=== PATIENT | male | born 1955 | race Caucasian/White ===

== ENCOUNTER → 2018-05-14 15:20 | Outpatient (CLI) | payer OTHER, SELFPAY ==
[2018-05-14 17:15] LABS: Prolactin 14.9 ng/mL (3.7-17.9)
== END ==
PROVIDERS: Family Provider Family Medicine; PCP Family Medicine; Visit Provider Family Medicine
DX: R79.89 Other specified abnormal findings of blood chemistry (principal)
CPT/HCPCS: 36415; 84146

== ENCOUNTER → 2018-06-12 16:30 | Outpatient (CLI) | payer OTHER, SELFPAY ==
[2018-06-12 17:39] LABS: Prolactin 5.7 ng/mL (3.7-17.9)
== END ==
PROVIDERS: PCP Family Medicine; Visit Provider Family Medicine
DX: F52.32 Male orgasmic disorder (principal)
CPT/HCPCS: 36415; 84146

== ENCOUNTER → 2018-07-03 15:00 | Outpatient (CLI) | payer OTHER, SELFPAY | PROVIDERS: Family Provider Family Medicine; PCP Family Medicine; Visit Provider Urology | DX: R97.20 Elevated prostate specific antigen [PSA] (principal) | CPT/HCPCS: 36415; 84153 ==

== ENCOUNTER → 2019-02-20 08:13 | Outpatient (CLI) | payer OTHER, SELFPAY ==
[2019-02-20 09:39] LABS: HEMOLYSIS < 15 (0-50)
[2019-02-20 09:40] LABS: Alanine Aminotransferase 27 IU/L (21-72); Albumin 4.3 g/dL (3.5-5.0); Albumin Globulin Ratio 1.6 (1.0-2.8); Alkaline Phosphatase 48 U/L (38-126); Aspartate Aminotransferase 34 IU/L (17-59); BUN Creatinine Ratio 18.2 (6-22); Bilirubin Total 0.8 mg/dL (0.2-1.3); Blood Urea Nitrogen 20 mg/dL (9-20); Calcium 9.4 mg/dL (8.4-10.2); Carbon Dioxide 33 mmol/L (22-32); Chloride 101 mmol/L (98-107); Cholesterol 218 mg/dL (140-199); Estimated Glomerular Filt Rate > 60.0 mL/min (>60); Globulin 2.7 g/dL (1.7-4.1); Glucose 87 mg/dL (80-110); HDL Cholesterol 61 mg/dL (40-60); LDL Cholesterol Calculated 147 mg/dL (<100); Sodium 139 mmol/L (137-145); Triglycerides 49 mg/dL (35-150)
[2019-02-20 09:56] LABS: Prolactin 26.5 ng/mL (3.7-17.9)
[2019-02-20 10:10] LABS: Prostate Specific Antigen 5.19 ng/mL (0.10-4.00)
[2019-02-24 19:20] LABS: TSH w/ Reflex to FT4 2.83 uIU/mL (0.47-4.68)
== END ==
PROVIDERS: PCP Family Medicine; Visit Provider Urology
DX: E78.5 Hyperlipidemia, unspecified (principal); F52.32 Male orgasmic disorder; Z12.5 Encounter for screening for malignant neoplasm of prostate
CPT/HCPCS: 36415; 80053; 80061; 84146; 84153; 84443

== ENCOUNTER → 2019-05-29 15:58 | Outpatient (CLI) | payer OTHER, SELFPAY ==
[2019-05-29 17:45] LABS: Prolactin 18.5 ng/mL (3.7-17.9)
[2019-05-29 18:00] LABS: Thyroid Stimulating Hormone 2.66 uIU/mL (0.47-4.68)
[2019-06-01 02:05] LABS: Sex Hormone Binding Globulin 63 nmol/L (22-77)
== END ==
PROVIDERS: PCP Family Medicine; Visit Provider Family Medicine
DX: E22.1 Hyperprolactinemia (principal)
CPT/HCPCS: 36415; 84146; 84270; 84403; 84443

== ENCOUNTER → 2019-06-01 07:33 | Outpatient (CLI) | payer OTHER, SELFPAY ==
[2019-06-01 09:44] LABS: Prolactin 34.2 ng/mL (3.7-17.9)
== END ==
PROVIDERS: PCP Family Medicine; Visit Provider Family Medicine
DX: E22.1 Hyperprolactinemia (principal)
CPT/HCPCS: 36415; 84146; 84403

== ENCOUNTER → 2019-08-14 08:09 | Outpatient (CLI) | payer OTHER, SELFPAY ==
--- NOTE | 2019-08-14 08:10 | DI.MRI.S_ITS ---
PROCEDURE: MR BRAIN (PITUITARY) WWO CON INDICATIONS: elevated prolactin, rule out pituitary tumor TECHNIQUE: Noncontrast sagittal and axial FLAIR, axial gradient echo, axial diffusion and ADC through the brain. Thin-slice sagittal and coronal T1 spin echo, coronal T2 fast spin echo through the pituitary. After the administration contrast, optional dynamic coronal T1 spin echo, thin-slice coronal and sagittal T1 spin echo images through the pituitary fossa; axial T1 spin echo with fat saturation through the brain. COMPARISON: None. FINDINGS: Image quality: Excellent. Pituitary Gland: The pituitary gland is normal in size. No areas of delayed abnormal enhancement or mass lesion are identified. CSF Spaces: Ventricles are normal in size and shape. Basal cisterns are patent. No extra-axial fluid collections. Brain: No intracranial bleeds or mass effects. No abnormal intracranial enhancement. Zhang-white matter interface is intact. Diffusion weighted images demonstrate no acute ischemic insults. Brainstem is normal. Normal intravascular flow voids are present. Skull and face: Calvarial marrow is normal in signal. Orbits appear normal. Sinuses: Sinuses and mastoids are clear. IMPRESSION: 1. Pituitary gland is unremarkable. Dictated by: Sharon Espinal M.D. on 08/14/2019 at 16:10 Approved by: Sharon Espinal M.D. on 08/14/2019 at 16:12
== END ==
PROVIDERS: PCP Family Medicine; Visit Provider Family Medicine
DX: E22.1 Hyperprolactinemia (principal)
CPT/HCPCS: 70553; A9579

== ENCOUNTER → 2020-04-05 07:48 | Outpatient (CLI) | payer OTHER, SELFPAY ==
[2020-04-05 09:15] LABS: Alanine Aminotransferase 19 IU/L (<50); Albumin 4.3 g/dL (3.5-5.0); Albumin Globulin Ratio 1.7 (1.0-2.8); Alkaline Phosphatase 49 U/L (38-126); Aspartate Aminotransferase 36 IU/L (17-59); BUN Creatinine Ratio 24.5 (6-22); Bilirubin Total 0.8 mg/dL (0.2-1.3); Blood Urea Nitrogen 26 mg/dL (9-20); Calcium 9.5 mg/dL (8.4-10.2); Carbon Dioxide 30 mmol/L (22-32); Chloride 103 mmol/L (98-107); Cholesterol 259 mg/dL (140-199); Estimated Glomerular Filt Rate > 60.0 mL/min (>60); Globulin 2.6 g/dL (1.7-4.1); Glucose 85 mg/dL (80-110); HDL Cholesterol 75 mg/dL (40-60); HEMOLYSIS < 15 (0-50); LDL Cholesterol Calculated 172 mg/dL (<100); Potassium 4.2 mmol/L (3.4-5.1); Sodium 137 mmol/L (137-145); Total Protein 6.9 g/dL (6.3-8.2); Triglycerides 61 mg/dL (35-150)
[2020-04-05 09:30] LABS: Prolactin 20.7 ng/mL (3.7-17.9)
[2020-04-05 09:45] LABS: Prostate Specific Antigen Scrn 4.25 ng/mL (0.1-4.0)
[2020-04-05 09:47] LABS: Testosterone 1340 ng/dL (71.8-623)
== END ==
PROVIDERS: PCP Family Medicine; Referring Provider Family Medicine; Visit Provider Family Medicine
DX: Z12.5 Encounter for screening for malignant neoplasm of prostate (principal); E78.5 Hyperlipidemia, unspecified; E22.1 Hyperprolactinemia
CPT/HCPCS: 36415; 80053; 80061; 84146; 84403; G0103

== ENCOUNTER → 2020-05-10 06:56 | Outpatient (CLI) | payer OTHER, SELFPAY ==
[2020-05-10 09:04] LABS: Cholesterol 196 mg/dL (140-199); HDL Cholesterol 67 mg/dL (40-60); LDL Cholesterol Calculated 118 mg/dL (<100); Triglycerides 54 mg/dL (35-150)
[2020-05-10 09:07] LABS: High Sensitivity CRP - Cardiac 0.1 mg/L (1.0-3.0)
== END ==
PROVIDERS: PCP Family Medicine; Referring Provider Family Medicine; Visit Provider Family Medicine
DX: E78.5 Hyperlipidemia, unspecified (principal)
CPT/HCPCS: 36415; 80061; 86140

== ENCOUNTER → 2020-06-08 07:29 | Outpatient (CLI) | payer OTHER, SELFPAY ==
[2020-06-08 09:30] LABS: Cholesterol 199 mg/dL (140-199); Glucose 87 mg/dL (80-110); HDL Cholesterol 67 mg/dL (40-60); LDL Cholesterol Calculated 120 mg/dL (<100); Triglycerides 61 mg/dL (35-150)
== END ==
PROVIDERS: PCP Family Medicine; Referring Provider Family Medicine; Visit Provider Family Medicine
DX: E78.5 Hyperlipidemia, unspecified (principal)
CPT/HCPCS: 36415; 80061; 82947; 83525

== ENCOUNTER → 2020-12-07 07:36 | Outpatient (CLI) | payer OTHER, SELFPAY ==
[2020-12-07 08:43] LABS: HEMOLYSIS < 15 (0-50)
[2020-12-07 08:52] LABS: Alanine Aminotransferase 31 IU/L (<50); Albumin 4.1 g/dL (3.5-5.0); Albumin Globulin Ratio 1.5 (1.0-2.8); Alkaline Phosphatase 65 U/L (38-126); Aspartate Aminotransferase 71 IU/L (17-59); BUN Creatinine Ratio 27.6 (6-22); Bilirubin Total 0.5 mg/dL (0.2-1.3); Blood Urea Nitrogen 29 mg/dL (9-20); Calcium 9.4 mg/dL (8.4-10.2); Carbon Dioxide 29 mmol/L (22-32); Chloride 104 mmol/L (98-107); Cholesterol 208 mg/dL (140-199); Estimated Glomerular Filt Rate > 60.0 mL/min (>60); Globulin 2.8 g/dL (1.7-4.1); Glucose 99 mg/dL (80-110); HDL Cholesterol 64 mg/dL (40-60); LDL Cholesterol Calculated 136 mg/dL (<100); Potassium 3.9 mmol/L (3.4-5.1); Sodium 139 mmol/L (137-145); Total Protein 6.9 g/dL (6.3-8.2); Triglycerides 42 mg/dL (35-150)
[2020-12-07 09:26] LABS: Prolactin 24.5 ng/mL (3.7-17.9)
== END ==
PROVIDERS: PCP Family Medicine; Referring Provider Family Medicine; Visit Provider Family Medicine
DX: D44.3 Neoplasm of uncertain behavior of pituitary gland (principal); E78.5 Hyperlipidemia, unspecified
CPT/HCPCS: 36415; 80053; 80061; 84146

== ENCOUNTER → 2021-02-02 08:39 | Outpatient (CLI) | payer OTHER, SELFPAY ==
[2021-02-02 09:34] LABS: Alanine Aminotransferase 18 IU/L (<50); Albumin Globulin Ratio 1.5 (1.0-2.8); Alkaline Phosphatase 54 U/L (38-126); Aspartate Aminotransferase 37 IU/L (17-59); BUN Creatinine Ratio 21.2 (6-22); Bilirubin Total 0.6 mg/dL (0.2-1.3); Blood Urea Nitrogen 22 mg/dL (9-20); Calcium 9.6 mg/dL (8.4-10.2); Carbon Dioxide 28 mmol/L (22-32); Chloride 104 mmol/L (98-107); Cholesterol 204 mg/dL (140-199); Estimated Glomerular Filt Rate > 60.0 mL/min (>60); Globulin 2.6 g/dL (1.7-4.1); Glucose 94 mg/dL (80-110); HDL Cholesterol 67 mg/dL (40-60); HEMOLYSIS < 15 (0-50); LDL Cholesterol Calculated 128 mg/dL (<100); Potassium 4.4 mmol/L (3.4-5.1); Sodium 137 mmol/L (137-145); Total Protein 6.6 g/dL (6.3-8.2); Triglycerides 46 mg/dL (35-150)
== END ==
PROVIDERS: PCP Family Medicine; Referring Provider Family Medicine; Visit Provider Family Medicine
DX: E78.2 Mixed hyperlipidemia (principal); R74.01 Elevation of levels of liver transaminase levels
CPT/HCPCS: 36415; 80053; 80061

== ENCOUNTER → 2023-02-18 12:30 | Outpatient (CLI) | payer OTHER, SELFPAY ==
[2023-02-18 14:05] LABS: Hematocrit 41.3 % (41-53); Hemoglobin 14.3 g/dL (13.5-17.5); Mean Corpuscular HGB Conc 34.5 % (30-36); Mean Corpuscular Hemoglobin 33.2 PG (26-34); Mean Corpuscular Volume 96.3 fL (80-100); Platelet Count 185 X10^3/uL (150-400); Red Blood Cell Count 4.29 X10^6/uL (4.5-5.9); Red Cell Distribution Width 13.6 % (11.6-14.8); White Blood Cell Count 3.6 X10^3/uL (4.5-11.0)
[2023-02-18 15:00] LABS: Alanine Aminotransferase 26 IU/L (<50); Albumin 4.3 g/dL (3.5-5.0); Albumin Globulin Ratio 1.3 (1.0-2.8); Alkaline Phosphatase 60 U/L (38-126); Aspartate Aminotransferase 38 IU/L (17-59); BUN Creatinine Ratio 21.4 (6-22); Bilirubin Total 0.5 mg/dL (0.2-1.3); Blood Urea Nitrogen 24 mg/dL (9-20); Calcium 9.1 mg/dL (8.4-10.2); Carbon Dioxide 32 mmol/L (22-32); Chloride 101 mmol/L (98-107); Cholesterol 279 mg/dL (140-199); Estimated Glomerular Filt Rate > 60 mL/min (>60); Globulin 3.2 g/dL (1.7-4.1); Glucose 95 mg/dL (80-110); HDL Cholesterol 77 mg/dL (40-60); HEMOLYSIS < 15 (0-50); LDL Cholesterol Calculated 192 mg/dL (<100); Potassium 4.4 mmol/L (3.4-5.1); Sodium 137 mmol/L (137-145); Total Protein 7.5 g/dL (6.3-8.2); Triglycerides 50 mg/dL (35-150)
[2023-02-18 15:12] LABS: Prolactin 13.3 ng/mL (3.7-17.9)
[2023-02-18 15:25] LABS: Prostate Specific Antigen 5.55 ng/mL (0.10-4.00)
[2023-02-18 15:28] LABS: Testosterone 962 ng/dL (71.8-623)
[2023-02-18 15:31] LABS: TSH w/ Reflex to FT4 1.59 uIU/mL (0.47-4.68)
[2023-02-19 04:46] LABS: Apolipoprotein B 129 mg/dL (<90)
[2023-02-20 11:16] LABS: Lipoprotein (a) 9.3 nmol/L (<75.0)
== END ==
PROVIDERS: PCP Internal Medicine; Referring Provider Internal Medicine; Visit Provider Internal Medicine
DX: E78.2 Mixed hyperlipidemia (principal); N13.8 Other obstructive and reflux uropathy; N40.1 Benign prostatic hyperplasia with lower urinary tract symptoms; Z82.0 Family history of epilepsy and other diseases of the nervous system; E22.1 Hyperprolactinemia
CPT/HCPCS: 36415; 80053; 80061; 82172; 83695; 84146; 84153; 84403; 84443; 85027

== ENCOUNTER → 2024-02-18 08:34 | Outpatient (CLI) | payer MEDICARE, SELFPAY ==
[2024-02-18 09:24] LABS: Aspartate Aminotransferase 52 IU/L (17-59); BUN Creatinine Ratio 21.7 (6-22); Blood Urea Nitrogen 26 mg/dL (9-20); Carbon Dioxide 31 mmol/L (22-32); Chloride 105 mmol/L (98-107); Cholesterol 180 mg/dL (140-199); Estimated Glomerular Filt Rate > 60 mL/min (>60); Glucose 101 mg/dL (80-110); HDL Cholesterol 89 mg/dL (40-60); HEMOLYSIS < 15 (0-50); LDL Cholesterol Calculated 80 mg/dL (<100); Sodium 138 mmol/L (137-145); Triglycerides 56 mg/dL (35-150)
[2024-02-18 09:41] LABS: Prolactin 17.9 ng/mL (3.7-17.9)
[2024-02-18 09:54] LABS: Prostate Specific Antigen 4.84 ng/mL (0.10-4.00)
== END ==
PROVIDERS: PCP Internal Medicine; Referring Provider Internal Medicine; Visit Provider Internal Medicine
DX: N40.1 Benign prostatic hyperplasia with lower urinary tract symptoms (principal); E78.2 Mixed hyperlipidemia; N13.8 Other obstructive and reflux uropathy; R97.20 Elevated prostate specific antigen [PSA]; E22.1 Hyperprolactinemia
CPT/HCPCS: 36415; 80048; 80061; 84146; 84153; 84450

== ENCOUNTER → 2025-03-02 17:13 | Outpatient (CLI) | payer MEDICARE, SELFPAY ==
[2025-03-02 18:18] LABS: Blood Urea Nitrogen 32 mg/dL (9-20); Calcium 9.1 mg/dL (8.4-10.2); Carbon Dioxide 25 mmol/L (22-32); Chloride 105 mmol/L (98-107); Cholesterol 242 mg/dL (140-199); Estimated Glomerular Filt Rate > 60 mL/min (>60); Glucose 97 mg/dL (70-99); HDL Cholesterol 63 mg/dL (40-60); HEMOLYSIS < 15 (0-50); Potassium 4.0 mmol/L (3.4-5.1); Sodium 137 mmol/L (137-145); Triglycerides 63 mg/dL (35-150)
[2025-03-02 18:50] LABS: Prostate Specific Antigen 7.00 ng/mL (0.10-4.00); TSH w/ Reflex to FT4 1.67 uIU/mL (0.47-4.68)
[2025-03-02 19:07] LABS: Vitamin B12 Reflex MMA if <400 593 pg/mL (239-931)
== END ==
PROVIDERS: PCP Internal Medicine; Referring Provider Internal Medicine; Visit Provider Internal Medicine
DX: E78.2 Mixed hyperlipidemia (principal); N40.1 Benign prostatic hyperplasia with lower urinary tract symptoms; N13.8 Other obstructive and reflux uropathy; R97.20 Elevated prostate specific antigen [PSA]; E53.8 Deficiency of other specified B group vitamins
CPT/HCPCS: 36415; 80048; 80061; 82607; 84153; 84443; 84450

== ENCOUNTER → 2025-06-22 14:48 | Outpatient (CLI) | payer MEDICARE, SELFPAY ==
[2025-06-22 15:15] LABS: Hematocrit 42.6 % (41-53); Hemoglobin 14.6 g/dL (13.5-17.5); Mean Corpuscular HGB Conc 34.2 % (30-36); Mean Corpuscular Hemoglobin 32.5 PG (26-34); Mean Corpuscular Volume 95.1 fL (80-100); Platelet Count 188 X10^3/uL (150-400)
[2025-06-22 15:16] LABS: Appearance Urine UA CLEAR; Bilirubin Urine UA NEGATIVE (NEGATIVE); Color Urine UA YELLOW; Glucose Urine UA NEGATIVE (Negative); Ketones Urine UA NEGATIVE (NEGATIVE); Leukocyte Esterase Urine UA NEGATIVE (NEGATIVE); Nitrite Urine UA NEGATIVE (Negative); Occult Blood Urine UA TRACE-INTACT (Negative); Protein Urine UA NEGATIVE (Negative); Specific Gravity Urine UA 1.020 (1.000-1.035); Urobilinogen Urine UA 0.2 E.U./dL (0.2); pH Urine UA 6.5 (4.5-8.0)
[2025-06-22 15:23] LABS: Culture Indicated Urine Cult Not Indicated
[2025-06-22 15:41] LABS: Alanine Aminotransferase 20 IU/L (<50); Albumin 4.7 g/dL (3.5-5.0); Albumin Globulin Ratio 1.7 (1.0-2.8); Alkaline Phosphatase 58 U/L (38-126); Blood Urea Nitrogen 27 mg/dL (9-20); Calcium 9.7 mg/dL (8.4-10.2); Carbon Dioxide 27 mmol/L (22-32); Chloride 103 mmol/L (98-107); Estimated Glomerular Filt Rate > 60 mL/min (>60); Globulin 2.8 g/dL (1.7-4.1); Glucose 110 mg/dL (70-99); HEMOLYSIS < 15 (0-50); Potassium 4.3 mmol/L (3.4-5.1); Sodium 137 mmol/L (137-145); Total Protein 7.5 g/dL (6.3-8.2)
[2025-06-22 16:06] LABS: TSH w/ Reflex to FT4 1.43 uIU/mL (0.47-4.68)
[2025-06-22 16:29] LABS: Vitamin B12 683 pg/mL (239-931)
== END ==
PROVIDERS: PCP Internal Medicine; Referring Provider Internal Medicine; Visit Provider Internal Medicine
DX: E78.2 Mixed hyperlipidemia (principal); N40.1 Benign prostatic hyperplasia with lower urinary tract symptoms; N13.8 Other obstructive and reflux uropathy; E53.8 Deficiency of other specified B group vitamins; R39.9 Unspecified symptoms and signs involving the genitourinary system
CPT/HCPCS: 36415; 80053; 81001; 82607; 84443; 85027

== ENCOUNTER → 2025-06-25 12:05 | Outpatient (CLI) | payer MEDICARE, SELFPAY ==
--- NOTE | 2025-06-25 12:06 | DI.MRI.S_ITS ---
PROCEDURE: MR STROKE Pre- and post-contrast brain MRI, non-contrast brain MR angiogram, pre- and postcontrast neck MR angiogram INDICATIONS: altered mental status TECHNIQUE: Brain: Noncontrast axial T1 spin echo, axial T2 fast spin echo, sagittal and axial FLAIR, coronal T2 fast spin echo, axial gradient echo, axial diffusion and ADC through the brain. After the administration of contrast, axial 3D VIBE of the cranial vasculature and brain. Brain MRA: Non-contrast 3-D time of flight MR angiogram, with multiple sarmxhg-ydkoiemip-lynhttuaid (MIP) reformats performed. Neck MRA: Axial and sagittal TruFISP through the neck. Coronal dynamic MR angiogram during administration of contrast in the arterial and venous phases, with 3- dimenstional dwafvou-exzvjueql-jxjjrydhek (MIP) reformats constructed from subtraction images. COMPARISON: None. FINDINGS: Image quality: Excellent. BRAIN: CSF spaces: Ventricles are normal in size and shape. Basal cisterns are patent. No extra-axial fluid collections. Brain: No intracranial bleeds or mass effects. Zhang-white matter interface is normal. Diffusion weighted images show no acute infarct. Brainstem appears normal. Normal intravascular flow voids are present. No abnormal intracranial enhancement. Skull and face: Calvarial marrow signal is normal. Orbits appear normal. Sinuses: Sinuses and mastoids are clear. BRAIN MR ANGIOGRAM: Anterior circulation: Intracranial internal carotid arteries are normal in size and enhancement. The flow within the paired anterior cerebral arteries is normal and symmetric. The flow within the middle cerebral arteries is normal and symmetric. The anterior communicating artery is seen. No stenoses, occlusions, or aneurysms. Posterior circulation: The visualized portions of the vertebral arteries demonstrate normal caliber, and join to form a normal appearing basilar artery. The flow within the posterior cerebral arteries is normal and symmetric. No stenoses, occlusions, or aneurysms. NECK MR ANGIOGRAM: Carotids: Great vessels demonstrate a conventional anatomy as they arise from the aortic arch. The origins of the common carotid arteries appear patent. The calibers and courses of both common carotid arteries are normal. The bifurcation regions appear normal bilaterally. The internal carotid arteries demonstrate normal course and caliber. Posterior circulation: The origins of the vertebral arteries appear patent. More superior portions of both vertebral arteries demonstrate normal course and caliber, and join to form a normal appearing basilar artery. Miscellaneous: Subclavian arteries appear patent. Pre-contrast images through the neck show no soft tissue abnormalities. IMPRESSION: Mild atrophy without acute infarct, hemorrhage or mass lesion. Unremarkable MR angiogram of the brain and neck. No significant stenosis, aneurysm or malformation Approved by: Rik Oscar M.D. on 06/25/2025 at 14:33
== END ==
PROVIDERS: PCP Internal Medicine; Referring Provider Internal Medicine; Visit Provider Internal Medicine
DX: I67.9 Cerebrovascular disease, unspecified (principal)
CPT/HCPCS: 70544; 70549; 70553; A9579